=== PATIENT | female | born 1990 | race Two or more races ===

== ENCOUNTER 2018-03-19 23:42 | Emergency (ER) | payer SELFPAY ==
[~2018-03-19] VITALS: Ht 154.9 cm; Wt 73.5 kg
[2018-03-20] MEDS ORDERED: SODIUM CHLORIDE 0.9% 1,000 ML IV ONE (00:15)
[2018-03-20 00:30] LABS: Basophils # (auto) 0.1 uL; Basophils % (auto) 0.6 % (0.0-2.0); Eosinophils # (auto) 0.3 uL; Monocytes # (auto) 0.9 uL; Neutrophils # (auto) 6.3 uL; White Blood Cell 10.9 10^3/uL (4.4-10.8)
[2018-03-20 00:31] LABS: Eosinophils % (auto) 2.6 % (0.0-7.0); Hematocrit 32.1 % (36.0-46.0); Hemoglobin 9.8 g/dL (12.2-16.2); Lymphocytes # (auto) 3.4 uL; Lymphocytes % (auto) 30.8 % (10.0-50.0); Mean Corpuscular Hemoglobin 19.8 pg (28.0-32.0); Mean Corpuscular Hgb Conc. 30.7 g/dL (32.0-36.0); Monocytes % (auto) 8.3 % (0.0-12.0); Neutrophils % (auto) 57.7 % (37.0-80.0); Red Blood Cells 4.96 10^6/uL (4.0-5.20)
[2018-03-20 00:33] LABS: Mean Corpuscular Volume 64.8 fL (80.0-100.0); Platelet Count (auto) 458 10^3/uL (140-450); Red Cell Distribution Width 18.9 % (11.8-14.3)
[2018-03-20 00:37] LABS: Urine Bacteria FEW /hpf (None Seen); Urine Blood Negative /uL (Negative); Urine Mucus FEW (None Seen); Urine Specific Gravity 1.023 (1.001-1.035); Urine Sperm PRESENT /hpf (None Seen); Urine WBC 10 /hpf (0 - 5)
[2018-03-20 00:50] LABS: Albumin 3.1 g/dL (3.4-5.0); BUN/Creatinine Ratio 9.2; Calcium 8.6 mg/dL (8.5-10.1); Potassium 3.5 mmol/L (3.5-5.1)
[2018-03-20 00:52] LABS: Bilirubin, Total 0.3 mg/dL (0.2-1.0); Total Protein 7.8 g/dL (6.4-8.2)
[2018-03-20] MEDS ORDERED: cefTRIAXone 1GM/50ML D5W 50 ML IV ONE (02:00)
[2018-03-20 02:31] VITALS: BP 102/65
== END 2018-03-20 03:18 | disposition home or self-care (01) ==
LOC: ER 23:42
DX: O20.0 Threatened abortion (principal); Z3A.01 Less than 8 weeks gestation of pregnancy
CPT/HCPCS: 36415; 76801; 76817; 80053; 81001; 84702; 85025; 96365; 99285; J0696; J7030; 81025; 96361